=== PATIENT | female | born 1995 ===

== ENCOUNTER 2023-07-26 17:35 | Outpatient (CLI) | payer OTHER ==
[2023-07-26 18:27] LABS: Amorphous Sediment,Urine Rare /hpf; Appearance,Urine Cloudy (Clear); Bilirubin,Urine Negative (Negative); Blood,Urine Negative (Negative); Color,Urine Light Yellow; Glucose,Urine (UA) Negative (Negative); Ketones,Urine Negative (Negative); Leukocyte Esterase,Urine Negative (Negative); Mucus,Urine Few /hpf; Nitrite,Urine Negative (Negative); Protein,Urine Negative (Negative); RBC,Urine 1 /hpf (0-5); Specific Gravity,Urine 1.016 (1.001-1.035); Squamous Epithelial Cell,Urine 7 /hpf (0-4); Urobilinogen,Urine <2.0 mg/dL (<2.0); WBC,Urine 2 /hpf (0-5)
[2023-07-26 18:35] LABS: Creatinine,Urine Random 104.5 mg/dL; Protein/Creatinine Ratio,Urine 0.067
[2023-07-26 19:05] VITALS: BP 121/59; PULSE 90; RESP 16; TEMP 96.5
--- NOTE | 2023-09-05 12:08 | P.MSEPDOC ---
Presenting Problems - Arrival Data Date of Arrival on Unit: 07/26/23 Time of Arrival on Unit: 17:35 Mode of Transport: Ambulatory - Complaint OB-Reason for Admission/Chief Complaint: Elevated Blood Pressure Medical History - Information : 2 Para: 1 Term: 1 : 0 Abortions: Spontaneous or Elective: 0 Number of Living Children: 1 - Gestational Age Gestational Age by LUCI (wks/days): 25 Weeks and 1 Days Review of Systems - Review of Systems Constitutional: No problems Breast: No problems ENT: No problems Cardiovascular: No problems Respiratory: No problems Gastrointestinal: No problems Genitourinary: No problems Musculoskeletal: No problems Neurological: No problems Skin: No problems Vital Signs - Temperature Temperature: 96.5 F Temperature Source: Temporal Artery Scan - Pulse Right Sitting Pulse Rate: 90 Pulse Assessment Method: Automatic Cuff - Respirations Respiratory Rate: 16 Oxygen Delivery Method: Room Air O2 Sat by Pulse Oximetry: 97 - Blood Pressure Right Arm Blood Pressure: 121/59 Blood Pressure Mean: 79 Blood Pressure Source: Automatic Cuff Medical Screen Scoring - Assessment - Baby A Baseline FHR: 140 Physician Notification - Physician Notified Physician Notified Date: 07/26/23 Physician Notified Time: 18:44 Physician: Alice Chand Order Received: Yes (d/c home) Maternal Triage Index - Non-Urgent/Priority 4 Non-Urgent Priority 4: Yes Criteria Met for Priority 4: eleveted bp and headache at home x4 days, bps in triage 109-121/50's, no other s/sx preeclampisa, urine results wnl Disposition - Disposition OB Disposition: Discharge to home Discharge Date: 07/26/23 Discharge Time: 18:49 I agree with the RN Medical Screening Exam: Yes Case reviewed; plan agreed upon as documented in EMR&OBIX.: Yes Diagnosis: rule out hypertension
== END 2023-07-26 18:49 | disposition home or self-care (01) ==
LOC: FBPOP 17:35
PROVIDERS: ATTEND Obstetrics & Gynecology
DX: O16.2 Unspecified maternal hypertension, second trimester (principal); Z3A.25 25 weeks gestation of pregnancy
CPT/HCPCS: 81001; 82570; 84156; 99215